=== PATIENT | female | born 2000 | race Caucasian/White ===

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

== ENCOUNTER 2021-02-22 16:08 | Emergency (ER) | payer BC, MEDICAID ==
[2021-02-22] MEDS ORDERED: Ondansetron 4 MG Tab.DIS PO ONE (16:09)
[2021-02-22] MEDS ORDERED: Ondansetron 4 MG/2 ML SDV IVPUSH ONE (16:27)
[2021-02-22] MEDS ORDERED: Sodium Chloride 0.9% 1,000 ML IV SCH (16:30)
--- NOTE | 2021-02-22 17:33 | EDM.PDOC ---
ED HPI GENERAL MEDICAL PROBLEM - General Chief Complaint: General Stated Complaint: COVID Time Seen by Provider: 02/22/21 16:20 Source of Information: Reports: Patient History Limitations: Reports: No Limitations - History of Present Illness INITIAL COMMENTS - FREE TEXT/NARRATIVE: Patient presented to the ED because of nausea but no vomiting. There is no fever, chills, cough/cold or dyspnea but she is just feeling weak. She was diagnosed with Covis 1 week ago and had been feeling crappy since then. Abdomen Pain Score (Numeric/FACES): 6 - Related Data Allergies Allergy/AdvReac Type Severity Reaction Status Date / Time No Known Allergies Allergy Verified 02/22/21 16:13 Home Meds: Home Meds Sertraline [Zoloft] 100 mg PO DAILY 03/10/20 [History] Past Medical History Gastrointestinal History: Reports: Other (See Below) Other Gastrointestinal History: Episode with abdominal pain. Genitourinary History: Reports: Other (See Below) Other Genitourinary History: Episode of UTI. ED ROS GENERAL - Review of Systems Review Of Systems: See Below Constitutional: Reports: No Symptoms, Weakness HEENT: Reports: No Symptoms Respiratory: Reports: No Symptoms Cardiovascular: Reports: No Symptoms Endocrine: Reports: No Symptoms GI/Abdominal: Reports: Nausea Musculoskeletal: Reports: No Symptoms Skin: Reports: No Symptoms Neurological: Reports: No Symptoms Psychiatric: Reports: No Symptoms ED EXAM, GENERAL - Physical Exam Exam: See Below Exam Limited By: No Limitations General Appearance: Alert, No Apparent Distress Ears: Normal External Exam, Normal Canal Nose: Normal Inspection, Normal Mucosa, No Blood Throat/Mouth: Normal Inspection, Normal Lips, Normal Teeth Head: Atraumatic, Normocephalic Neck: Normal Inspection, Supple, Non-Tender, Full Range of Motion Respiratory/Chest: No Respiratory Distress, Lungs Clear, Normal Breath Sounds, No Accessory Muscle Use, Chest Non-Tender Cardiovascular: Normal Peripheral Pulses, Regular Rate, Rhythm, No Edema, No Gallop, No JVD, No Murmur GI/Abdominal: Normal Bowel Sounds, Soft, Non-Tender, No Organomegaly, No Distention, No Abnormal Bruit Back Exam: Normal Inspection Extremities: Normal Inspection Neurological: Alert, Oriented, CN II-XII Intact, Normal Cognition, Normal Reflexes Course - Vital Signs Text/Narrative:: Love result was reviewed and discussed with patient Zofrmaxine ODT PO x1 Last Recorded V/S: Last Vital Signs Temp 37.0 C 02/22/21 16:10 Pulse 87 02/22/21 16:10 Resp 18 02/22/21 16:10 BP 134/51 L 02/22/21 16:10 Pulse Ox 98 02/22/21 16:10 - Orders/Labs/Meds Labs: Laboratory Tests 02/22/21 02/22/21 Range/Units 16:45 16:45 WBC 2.0 L (3.0-10.3) x10-3/uL RBC 4.41 (3.60-5.20) x10(6)uL Hgb 12.9 (11.4-15.5) g/dL Hct 39.2 (34.2-48.2) % MCV 88.9 (76.7-100.5) fL MCH 29.4 (23.9-33.9) pg MCHC 33.0 (31.9-34.8) g/dL RDW 12.4 (12.3-16.5) % Plt Count 139 L (151-488) x10(3)uL MPV 6.9 L (7.1-12.4) fL Neut % (Auto) 50.9 (30.8-76.2) % Lymph % (Auto) 40.2 (18.4-52.1) % [place] % (Auto) 8.5 (4.4-15.7) % Eos % (Auto) 0.2 L (0.6-8.1) % Baso % (Auto) 0.2 (0.2-1.5) % Neut # (Auto) 1.0 L (1.5-6.3) x10-3/uL Lymph # (Auto) 0.8 L (1.0-4.4) x10-3/uL [place] # (Auto) 0.2 L (0.3-1.0) x10-3/uL Eos # (Auto) 0.0 (0.0-0.8) x10-3/uL Baso # (Auto) 0.0 (0.0-0.1) x10-3/uL Sodium 142 (135-145) mmol/L Potassium 3.5 (3.5-5.3) mmol/L Chloride 106 (100-110) mmol/L Carbon Dioxide 27 (21-32) mmol/L BUN 7 (7-18) mg/dL Creatinine 0.8 (0.55-1.02) mg/dL Est Cr Clr Drug Dosing TNP Estimated GFR (MDRD) > 60 (>60) BUN/Creatinine Ratio 8.8 L (9-20) Glucose 91 (80-116) mg/dL Calcium 8.2 (8.2-10.1) mg/dL Meds: Medications Discontinued Medications Generic Name Dose Route Start Last Admin Trade Name Freq PRN Reason Stop Dose Admin Sodium Chloride 1,000 mls @ 999 mls/hr 02/22/21 16:30 02/22/21 16:41 Normal Saline IV 999 mls/hr ASDIRECTED CARL Administration Ondansetron HCl 4 mg 02/22/21 16:27 02/22/21 16:41 Ondansetron 4 Mg/2 Ml Sdv IVPUSH 02/22/21 16:28 4 mg ONETIME ONE Administration Ondansetron HCl 16 mg 02/22/21 16:09 Ondansetron 4 Mg Tab.Dis PO 02/22/21 16:10 .STK-MED ONE Departure - Departure Time of Disposition: 18:00 Disposition: Home, Self-Care 01 Condition: Good Clinical Impression: COVID - Discharge Information Instructions: COVID-19 Frequently Asked Questions, 10 Things You Can Do to Manage Your COVID-19 Symptoms at Home - [facility] (09/06/2020) Referrals: PCP,None [Primary Care Provider] - Forms: ED Department Discharge Additional Instructions: Please read discharge instructions on Covid infection Wear your mask at all times Take Vit C,D,Zinc daily Zofran ODT 4 mg every 4 hours as needed for nausea Ibuprofen 800 mg with tylenol 1000 mg every 8 hours as needed for pain Follow up as needed
== END 2021-02-22 18:00 | disposition home or self-care (01) ==
LOC: FB.ED 16:08
DX: U07.1 COVID-19 (principal)
CPT/HCPCS: 36415; 71045; 80048; 85025; 96374; 99285; 99285-25; A9270-GY; J2405; J7030